=== PATIENT | male | born 1990 | race Two or more races ===

== ENCOUNTER 2017-02-18 18:09 | Observation (INO) | payer SELFPAY ==
[~2017-02-18 18:09] MED LIST: DEXAMETHASONE SOD PHOSPHATE INJ 4 MG/1 ML VIAL ONE; GLYCOPYRROLATE INJ 0.4 MG/2 ML VIAL ONE; NEOSTIGMINE METHYLSULFATE 10 MG/10 ML VIAL ONE; ONDANSETRON HCL INJ/PF 4 MG/2 ML SDV ONE; ROCURONIUM BROMIDE INJ 50 MG/5 ML VIAL IV ONE; SUCCINYLCHOLINE CHLORIDE INJ 200 MG/10 ML VIAL ONE
[2017-02-18] MEDS ORDERED: NORMAL SALINE 1000 ML 1,000 ML IV ONE (19:20)
--- NOTE | 2017-02-18 19:21 | ER Document Report ---
ED Medical Screen (RME) - General Chief Complaint: Abdominal Pain Stated Complaint: ABDOMINAL PAIN Time Seen by Provider: 02/18/17 19:20 Notes: Patient with 1 day of central abdominal pain with decreased appetite and vomiting. No problems with urination or stools. No previous abdominal surgeries. TRAVEL OUTSIDE OF THE [place] IN LAST 30 DAYS: No - Related Data Allergies/Adverse Reactions: No Known Allergies Allergy (Unverified 02/18/17 18:12) Past Medical History - Social History Chew tobacco use (# tins/day): No Frequency of alcohol use: None Drug Abuse: None Renal/ Medical History: Denies: Hx Peritoneal Dialysis Physical Exam - Vital signs Vitals: Temp Pulse Resp BP Pulse Ox 97.8 F 81 20 146/80 H 97 02/18/17 18:14 02/18/17 18:14 02/18/17 18:14 02/18/17 18:14 02/18/17 18:14 Course - Vital Signs Vital signs: Temp Pulse Resp BP Pulse Ox 97.8 F 81 20 146/80 H 97 02/18/17 18:14 02/18/17 18:14 02/18/17 18:14 02/18/17 18:14 02/18/17 18:14
[2017-02-18 19:55] LABS: APPEARANCE,URINE SLIGHTLY-CLOUDY; BILIRUBIN,URINE NEGATIVE (NEGATIVE); GLUCOSE, URINE NEGATIVE (NEGATIVE); KETONES,URINE NEGATIVE (NEGATIVE); LEUKOCYTE ESTERASE,URINE NEGATIVE (NEGATIVE); NITRITE,URINE NEGATIVE (NEGATIVE); PROTEIN,URINE 30 mg/dL (NEGATIVE); URINE SPECIFIC GRAVITY 1.035; UROBILINOGEN,URINE NEGATIVE mg/dL (<2.0)
[2017-02-18] MEDS ORDERED: ONDANSETRON HCL INJ/PF 4 MG/2 ML SDV IV ONE (19:59)
[2017-02-18 20:04] LABS: HEMATOCRIT 46.1 % (37.9-51.0); HEMOGLOBIN 15.7 g/dL (13.5-17.0); MEAN CORPUSCULAR HEMOGLOBIN 28.8 pg (27.0-33.4); MEAN CORPUSCULAR HGB CONC 34.1 g/dL (32.0-36.0); MEAN CORPUSCULAR VOLUME 84 fl (80-97); RED BLOOD COUNT 5.46 10^6/uL (4.35-5.55); RED CELL DISTRIBUTION WIDTH 13.3 % (11.5-14.0); WHITE BLOOD COUNT 19.8 10^3/uL (4.0-10.5)
[2017-02-18 20:23] LABS: ALANINE AMINOTRANSFERASE 101 U/L (21-72); ALBUMIN 5.3 g/dL (3.5-5.0); ALKALINE PHOSPHATASE 69 U/L (38-126); ANION GAP 19 (5-19); ASPARTATE AMINO TRANSFERASE 56 U/L (17-59); BILIRUBIN,DIRECT 0.4 mg/dL (0.0-0.4); BILIRUBIN,TOTAL 0.8 mg/dL (0.2-1.3); BLOOD UREA NITROGEN 18 mg/dL (7-20); CALCIUM 9.9 mg/dL (8.4-10.2); CARBON DIOXIDE 25 mmol/L (22-30); CHLORIDE 99 mmol/L (98-107); CREATININE RESULT 0.87 mg/dL (0.52-1.25); GLUCOSE 125 mg/dL (75-110); LIPASE 66.4 U/L (23-300); POTASSIUM 4.1 mmol/L (3.6-5.0); SODIUM 142.7 mmol/L (137-145); TOTAL PROTEIN 9.1 g/dL (6.3-8.2)
[2017-02-18 20:31] LABS: BAND NEUTROPHILS % (MANUAL) 1 % (3-5); BASOPHILS % (MANUAL) 0 % (0-2); EOSINOPHILS % (MANUAL) 0 % (0-6); LYMPHOCYTES % (MANUAL) 5 % (13-45); PLATELET CLUMPS PRESENT; TOTAL CELLS COUNTED 100
--- NOTE | 2017-02-18 20:45 | RADIOLOGY REPORT (SQ) ---
EXAM DESCRIPTION: U/S ABDOMEN LIMITED W/O DOP COMPLETED DATE/TIME: 02/18/2017 8:37 pm REASON FOR STUDY: upper abdominal pain, vomiting COMPARISON: None. TECHNIQUE: Dynamic and static grayscale images acquired of the abdomen and recorded on PACS. Additio nal selected color Doppler and spectral images recorded. LIMITATIONS: None. FINDINGS: PANCREAS: No masses. Visualized pancreatic duct normal caliber. LIVER: Diffusely heterogeneous echo pattern without distinct focal masses. Normal size. LIVER VASCULATURE: Normal directional flow of the main portal vein and hepatic veins. GALLBLADDER: No stones. Normal wall thickness. No pericholecystic fluid. ULTRASOUND-DETECTED ECHOLS'S SIGN: Negative. INTRAHEPATIC DUCTS AND COMMON DUCT: CBD and intrahepatic ducts normal caliber. No filling defects. INFERIOR VENA CAVA: Normal flow. AORTA: No aneurysm. RIGHT KIDNEY: Normal size. Normal echogenicity. No solid or suspicious masses. No hydronephrosis. No calcifications. PERITONEAL AND RIGHT PLEURAL SPACE: No ascites or effusions. OTHER: No other significant findings. IMPRESSION: Diffusely heterogeneous echo pattern in the liver without a focal mass. Question hepati tis. Infiltrative process in the differential. TECHNICAL DOCUMENTATION: JOB ID: [id number] [employer]- All Rights Reserved
[2017-02-18] MEDS ORDERED: MORPHINE SULFATE 10 MG/ML INJ IV PRN (20:51)
--- NOTE | 2017-02-18 20:53 | ER Document Report ---
ED General - General Chief Complaint: Abdominal Pain Stated Complaint: ABDOMINAL PAIN Time Seen by Provider: 02/18/17 19:20 Notes: Patient is a 26-year-old male without past medical history who presents with approximately 12 hours of progressively worsening lower abdominal pain. Patient describes as a dull, constant throbbing pain to the lower abdomen. Touching the area or moving worsens the pain. Nothing improves the pain. He denies any history of similar symptoms in the past. He has no prior history of abdominal surgeries. He notes associated vomiting but he has not had fever or diarrhea. No dysuria. He has not seen his primary care doctor regarding today' s concerns. TRAVEL OUTSIDE OF THE [place] IN LAST 30 DAYS: No - Related Data Allergies/Adverse Reactions: No Known Allergies Allergy (Unverified 02/18/17 18:12) Past Medical History - General Information source: Patient - Social History Smoking Status: Current Some Day Smoker Chew tobacco use (# tins/day): No Frequency of alcohol use: None Drug Abuse: None Lives with: Spouse/Significant other Family History: Reviewed & Not Pertinent Patient has suicidal ideation: No Patient has homicidal ideation: No Renal/ Medical History: Denies: Hx Peritoneal Dialysis Review of Systems - Review of Systems Notes: Constitutional: Negative for fever. HENT: Negative for sore throat. Eyes: Negative for visual changes. Cardiovascular: Negative for chest pain. Respiratory: Negative for shortness of breath. Gastrointestinal: Positive for abdominal pain and vomiting Genitourinary: Negative for dysuria. Musculoskeletal: Negative for back pain. Skin: Negative for rash. Neurological: Negative for headaches, weakness or numbness. 10 point ROS negative except as marked above and in HPI. Physical Exam - Vital signs Vitals: Temp Pulse Resp BP Pulse Ox 97.8 F 81 20 146/80 H 97 02/18/17 18:14 02/18/17 18:14 02/18/17 18:14 02/18/17 18:14 02/18/17 18:14 Interpretation: Hypertensive Notes: PHYSICAL EXAMINATION: GENERAL: Appears uncomfortable but in no acute distress HEAD: Atraumatic, normocephalic. EYES: Pupils equal round and reactive to light, extraocular movements intact, sclera anicteric, conjunctiva are normal. ENT: nares patent, oropharynx clear without exudates. Moderately dry mucous membranes. NECK: Normal range of motion, supple without lymphadenopathy LUNGS: Breath sounds clear to auscultation bilaterally and equal. No wheezes rales or rhonchi. HEART: Regular rate and rhythm without murmurs ABDOMEN: Soft, focal tenderness to the right lower quadrant with rebound and voluntary guarding. No otherwise localized tenderness. EXTREMITIES: Normal range of motion, no pitting or edema. No cyanosis. NEUROLOGICAL: No focal neurological deficits. Moves all extremities spontaneously and on command. PSYCH: Normal mood, normal affect. SKIN: Warm, Dry, normal turgor, no rashes or lesions noted. Course - Re-evaluation Re-evalutation: 02/18/17 20:52 Patient presents with changing stories, initially reporting acute onset of upper abdominal pain in triage prompting a workup of right upper quadrant epigastric abdominal pain. However when I assessed the patient he actually has a different story reporting progressively worsening, gradual onset lower abdominal pain that started centrally and is now more towards right lower quadrant. He has focal tenderness to the right lower quadrant with rebound and some voluntary guarding. Exam is very worrisome for acute appendicitis and his white count is 19.8. Will proceed with CT abdomen pelvis to further assess. 02/18/17 21:58 CT does demonstrate an acute appendicitis. I have discussed this case with Dr. Tejeda who is accepted the patient to go to the operating room. - Vital Signs Vital signs: Temp Pulse Resp BP Pulse Ox 99 F 117 H 16 133/72 H 96 02/19/17 00:54 02/19/17 00:54 02/19/17 00:54 02/19/17 00:54 02/19/17 00:54 - Laboratory Result Diagrams: 02/18/17 19:50 02/18/17 19:50 Laboratory results interpreted by me: 02/18/17 02/18/17 02/18/17 19:30 19:50 19:50 WBC 19.8 H Seg Neuts % (Manual) 87 H Band Neutrophils % 1 L Lymphocytes % (Manual) 5 L Abs Neuts (Manual) 17.4 H Glucose 125 H ALT 101 H Total Protein 9.1 H Albumin 5.3 H Urine Protein 30 H - Diagnostic Test Radiology reviewed: Reports reviewed Discharge - Discharge Clinical Impression: Acute appendicitis Qualifiers: Acute appendicitis type: with localized peritonitis Qualified Code(s): K35.3 - Acute appendicitis with localized peritonitis Condition: Fair Disposition: ADMITTED OBSERVATION Admitting Provider: Surgicalist - [facility] Admitted: OR
--- NOTE | 2017-02-18 21:33 | RADIOLOGY REPORT (SQ) ---
EXAM DESCRIPTION: CT ABD/PELVIS WITH IV ONLY COMPLETED DATE/TIME: 02/18/2017 9:21 pm REASON FOR STUDY: rlq pain, eval appendicitis COMPARISON: None. TECHNIQUE: CT scan of the abdomen and pelvis performed using helical scanning technique with dynamic intravenous contrast injection. No oral contrast. Images reviewed with lung, soft tissue, and bone windows. Reconstructed coronal and sagittal MPR images reviewed. Delayed images for evaluation of the urinary system also acquired. All images stored on PACS. All CT scanners at this facility use dose modulation, iterative reconstruction, and/or weight based d osing when appropriate to reduce radiation dose to as low as reasonably achievable (ALARA). [facility]: Dose Right [facility]: CareDose [facility]: Dose Right [facility]: Teradose 4D [facility]: [employer] CONTRAST TYPE AND DOSE: contrast/concentration: Isovue 370.00 mg/ml; Total Contrast Delivered: 89.0 ml; Total Saline Delivered: 45.0 ml RENAL FUNCTION: None required. The patient is less than 50 years old. RADIATION DOSE: Up-to-date CT equipment and radiation dose reduction techniques were employed. CTDIv ol: 10.6 - 15.0 mGy. DLP: 1400 mGy-cm.. LIMITATIONS: None. FINDINGS: LOWER CHEST: No significant findings. No nodules or infiltrates. LIVER: Normal size. No masses. No dilated ducts. SPLEEN: Normal size. No focal lesions. PANCREAS: No masses. No significant calcifications. No adjacent inflammation or peripancreatic fluid collections. Pancreatic duct not dilated. GALLBLADDER: No identified stones by CT criteria. No inflammatory changes to suggest cholecystitis. ADRENAL GLANDS: No significant masses or asymmetry. RIGHT KIDNEY AND URETER: No solid masses. No significant calcifications. No hydronephrosis or hyd roureter. LEFT KIDNEY AND URETER: No solid masses. No significant calcifications. No hydronephrosis or hydr oureter. AORTA AND VESSELS: No aneurysm. No dissection. Renal arteries, SMA, celiac without stenosis. RETROPERITONEUM: No retroperitoneal adenopathy, hemorrhage or masses. BOWEL AND PERITONEAL CAVITY: No masses or inflammatory changes. No free fluid or peritoneal masses. APPENDIX: Dilated appendix containing appendicolith. PELVIS: No mass. No free fluid. Normal bladder. ABDOMINAL WALL: No masses. No hernias. BONES: No significant or acute findings. OTHER: No other significant finding. IMPRESSION: Appendicitis. No perforation or abscess. COMMENT: Pertinent findings on the imaging study reported as a CRITICAL RESULT to MACIEJ freitas t21:27 on 02/18/2017. Category of Critical Result: Acute appendicitis TECHNICAL DOCUMENTATION: JOB ID: [id number] Quality ID # [id number]: Final reports with documentation of one or more dose reduction techniques (e.g., Au tomated exposure control, adjustment of the mA and/or kV according to patient size, use of iterative reconstruction technique) 2010 [employer]- All Rights Reserved
[2017-02-18] MEDS ORDERED: PIPERACILLIN/TAZOBACTAM 3.375 GM VIAL IV ONE ×2 (21:45→22:16)
--- NOTE | 2017-02-18 22:16 | PDOC H&P ---
History of Present Illness Admission Date/PCP: 02/18/17 Patient complains of: RLQ pains History of Present Illness: AUSTYN PRUETT is a 26 year old male C/O RLQ pains at 8 am.Associated nausea and vomiting Past Medical History Past Medical History: No medical past history Past Surgical History Past Surgical History: hedge trimmer previous surgery Social History Smoking Status: Current Some Day Smoker - Advance Directive Resuscitation Status: Full Code Family History Family History: Reviewed & Not Pertinent Parental Family History Reviewed: Yes Children Family History Reviewed: No Sibling(s) Family History Reviewed.: No Medication/Allergy Allergies/Adverse Reactions: No Known Allergies Allergy (Unverified 02/18/17 18:12) Review of Systems Constitutional: PRESENT: other - no fever nor chills Eyes: PRESENT: other - no visual or hearing problems Nose, Mouth, and Throat: PRESENT: other - no sore throat Cardiovascular: PRESENT: other - no chest pains Respiratory: PRESENT: other - no cough Gastrointestinal: PRESENT: as per HPI Musculoskeletal: PRESENT: other - no muscle pains Integumentary: PRESENT: other - no rash Neurological: PRESENT: other - no seizures Endocrine: PRESENT: other - no cold or heat intolerance Hematologic/Lymphatic: PRESENT: other - no bleeding tendency or lymphadenopathy Physical Exam Vital Signs: Temp Pulse Resp BP Pulse Ox 97.8 F 81 20 146/80 H 97 02/18/17 18:14 02/18/17 18:14 02/18/17 18:14 02/18/17 18:14 02/18/17 18:14 Intake & Output 02/17/17 02/18/17 02/19/17 06:59 06:59 06:59 Weight 82.1 kg General appearance: PRESENT: mild distress Head exam: PRESENT: atraumatic, normocephalic Eye exam: PRESENT: conjunctiva pink Ear exam: PRESENT: normal external ear exam Mouth exam: PRESENT: moist, tongue midline Neck exam: PRESENT: full ROM Respiratory exam: PRESENT: clear to auscultation bam Cardiovascular exam: PRESENT: RRR Pulses: PRESENT: normal femoral pulses Vascular exam: PRESENT: normal capillary refill GI/Abdominal exam: PRESENT: soft, tenderness - RLQ tenderness Rectal exam: PRESENT: deferred Extremities exam: PRESENT: full ROM Musculoskeletal exam: PRESENT: ambulatory Neurological exam: PRESENT: alert, oriented to person, oriented to place, oriented to time, oriented to situation Psychiatric exam: PRESENT: appropriate affect Skin exam: PRESENT: normal color, warm Results Laboratory Results: 02/18/17 19:50 02/18/17 19:50 02/18/17 02/18/17 02/18/17 19:30 19:50 19:50 WBC 19.8 H RBC 5.46 Hgb 15.7 Hct 46.1 MCV 84 MCH 28.8 MCHC 34.1 RDW 13.3 Plt Count 219 Seg Neutrophils % Not Reportable Lymphocytes % Not Reportable Monocytes % Not Reportable Eosinophils % Not Reportable Basophils % Not Reportable Absolute Neutrophils Not Reportable Absolute Lymphocytes Not Reportable Absolute Monocytes Not Reportable Absolute Eosinophils Not Reportable Absolute Basophils Not Reportable Sodium 142.7 Potassium 4.1 Chloride 99 Carbon Dioxide 25 Anion Gap 19 BUN 18 Creatinine 0.87 Est GFR ( Amer) > 60 Est GFR (Non-Af Amer) > 60 Glucose 125 H Calcium 9.9 Total Bilirubin 0.8 AST 56 ALT 101 H Alkaline Phosphatase 69 Total Protein 9.1 H Albumin 5.3 H Lipase 66.4 Urine Color YELLOW Urine Appearance SLIGHTLY-CLOUDY Urine pH 6.0 Ur Specific Nelson 1.035 Urine Protein 30 H Urine Glucose (UA) NEGATIVE Urine Ketones NEGATIVE Urine Blood NEGATIVE Urine Nitrite NEGATIVE Ur Leukocyte Esterase NEGATIVE Urine WBC (Auto) 3 Urine RBC (Auto) 6 Impressions: Abdomen Ultrasound 02/18/17 19:59 IMPRESSION: Diffusely heterogeneous echo pattern in the liver without a focal mass. Question hepatitis. Infiltrative process in the differential. Abdomen/Pelvis CT 02/18/17 20:51 IMPRESSION: Appendicitis. No perforation or abscess. Assessment & Plan - Time Time Spent: 30 to 50 Minutes - Inpatient Certification Based on my medical assessment, after consideration of the patient's comorbidities, presenting symptoms, or acuity I expect that the services needed warrant INPATIENT care.: No I certify that my determination is in accordance with my understanding of Medicare's requirements for reasonable and necessary INPATIENT services [42 CFR 412.3e].: Yes Medical Necessity: Need for IV Antibiotics, Need for Surgery - Plan Summary Plan Summary: Start IV antibiotics Hydrate For lap appendectomy
[2017-02-18] MEDS ORDERED: HYDROMORPHONE HCL INJ/PF 2 MG/ML AMPULE ONE ×2 (22:37→22:38)
[2017-02-18] MEDS ORDERED: FENTANYL CITRATE INJ/PF 100 MCG/2 ML AMPUL ONE (22:37)
[2017-02-18] MEDS ORDERED: MIDAZOLAM 2 MG/2 ML INJ ONE (22:38)
[2017-02-18] MEDS ORDERED: PROPOFOL INJ 200 MG/20 ML VIAL IV ONE (22:38)
[2017-02-18] MEDS ORDERED: IBUPROFEN INJ 800 MG/8 ML VIAL IV ONE (22:38)
[2017-02-18] MEDS ORDERED: BUPIVACAINE HCL 0.25 % INJ/PF (2.5 MG/1 ML) 30 ML VIAL ONE (22:41)
[2017-02-18] MEDS ORDERED: BUPIVACAINE HCL 0.25 % INJ/PF (2.5 MG/1 ML) 30 ML VIAL INJ ONE ×2 (23:07)
[2017-02-18] MEDS ORDERED: MEPERIDINE HCL/PF INJ 25 MG/1 ML DISP.SYRIN IV PRN (23:12)
[2017-02-18] MEDS ORDERED: DIPHENHYDRAMINE HCL 50 MG/ML VIAL IV PRN (23:12)
[2017-02-18] MEDS ORDERED: PROMETHAZINE HCL INJ 25 MG/1 ML VIAL IV PRN (23:12)
[2017-02-18] MEDS ORDERED: FENTANYL CITRATE INJ/PF 100 MCG/2 ML AMPUL IV PRN ×3 (23:12)
[2017-02-19] MEDS ORDERED: PIPERACILLIN/TAZOBACTAM 3.375 GM VIAL IV PRN (00:16)
[2017-02-19] MEDS ORDERED: OXYCODONE-ACETAMINOPHEN 5-325 MG TABLET PO PRN (00:17)
[2017-02-19] MEDS ORDERED: ONDANSETRON HCL INJ/PF 4 MG/2 ML SDV IV PRN (00:18)
[2017-02-19] MEDS ORDERED: NORMAL SALINE 1000 ML 1,000 ML IV PRN (00:18)
[2017-02-19] MEDS ORDERED: MORPHINE SULFATE 10 MG/ML INJ IV PRN (00:18)
--- NOTE | 2017-02-19 00:43 | OPERATIVE REPORT E ---
Operative Report NAME: AUSTYN PRUETT : 1990 AGE: 26Y DATE OF SURGERY: 02/18/2017 ROOM: ED20 PREOPERATIVE DIAGNOSIS: Acute appendicitis. POSTOPERATIVE DIAGNOSIS: Acute appendicitis. PROCEDURE PERFORMED: Laparoscopic appendectomy. SURGEON: MANOLO GARCIA M.D. ANESTHESIA: General. INDICATION: This is a 26-year-old male with complaint of right lower quadrant around 6:00 this morning. Pain worsened, went to the emergency room where a CT scan of the abdomen revealed acute appendicitis. DESCRIPTION OF PROCEDURE: After adequate general anesthesia, patient was placed in supine position and the abdomen prepped and draped in the usual sterile fashion. Appropriate timeout was called. An infraumbilical elliptical incision was made and the fascia identified and grasped with 2 Julia clamps and divided between the 2 Julia clamps. The fascia was further deepened with the use of hemostat and also with blunt finger dissection down into the abdominal cavity. Next, a Zhao trocar was then inserted into the abdominal cavity and CO2 insufflated to a pressure of 15 mmHg. A camera was then inserted and 2 other trocars were placed under direct vision, a 5 mm in the suprapubic area, and a 12 mm in the left lower quadrant. The appendix was then identified and grasped with a grasper, and the mesoappendix was subsequently divided and ligated and cauterized with harmonic lakesha. The base of the appendix was noted to be clear of any inflammation but the whole appendix was noted to be completely inflamed. Next, the base of the appendix close to the cecum was then divided with an Endo YIFAN stapler device. It was initially stapled and then divided. The appendix was then placed in the Endo bag and brought out through the umbilical port. This was noted to have at least a fecalith. Appendix also noted to be quite dilated and inflamed. Next, the appendectomy site was inspected and irrigated with saline solution. There was small oozing close to the lateral wall and controlled with harmonic cautery. Good hemostasis was noted and the stump looked good without any evidence of bleeding. The omentum was subsequently pulled over the area of the appendectomy site. Trocars were then removed and CO2 allowed to come out of the trocar sites. Next, the fascial defect at the infraumbilical layer was then closed with a [id number] suture, using 0 Vicryl and 2 simple stitches also placed on each side. All the incisions were then closed with running subcuticular 4-0 Vicryl. Sterile dressings were placed over the operative sites. Needle, instrument, and sponge counts were all correct. Estimated blood loss was about 10 mL. DICTATING PHYSICIAN: MANOLO GARCIA M.D. [id number] PHY#: [id number] ID: [id number] JOB#: [id number] ACCT: [id number] cc:MANOLO GARCIA M.D. >
[2017-02-19] MEDS ORDERED: PIPERACILLIN/TAZOBACTAM 3.375 GM VIAL IV ONE (01:14)
[2017-02-19] MEDS: PIPERACILLIN SODIUM/TAZOBACTAM 3.375 GM in NORMAL SALINE 100 ML IV SCH ×2 (02:43→08:38)
[2017-02-19] MEDS ORDERED: PIPERACILLIN SODIUM/TAZOBACTAM 3.375 GM in NORMAL SALINE 100 ML IV SCH (06:00)
[2017-02-19 06:34] LABS: ABSOLUTE MONOCYTES (AUTO) 0.8 10^3/uL (0.1-1.4); BASOPHILS % (AUTO) 0.1 % (0-2); HGB HCT DIFFERENCE 1.5; LYMPHOCYTES % (AUTO) 5.7 % (13-45); MEAN CORPUSCULAR HEMOGLOBIN 29.4 pg (27.0-33.4); MEAN CORPUSCULAR HGB CONC 34.6 g/dL (32.0-36.0); MEAN CORPUSCULAR VOLUME 85 fl (80-97); MONOCYTES % (AUTO) 4.3 % (3-13); RED BLOOD COUNT 4.59 10^6/uL (4.35-5.55); RED CELL DISTRIBUTION WIDTH 13.3 % (11.5-14.0); SEGMENTED NEUTROPHILS % (AUTO) 89.9 % (42-78); WHITE BLOOD COUNT 17.9 10^3/uL (4.0-10.5)
[2017-02-19 06:39] LABS: HEMOGLOBIN 13.5 g/dL (13.5-17.0)
[2017-02-19 10:05] VITALS: BP 139/64
--- NOTE | 2017-02-19 14:18 | DISCHARGE SUMMARY E ---
Discharge Summary NAME: AUSTYN PRUETT : 1990 AGE: 26Y ADMITTED: 02/18/2017 DISCHARGED: 02/19/2017 FINAL DIAGNOSIS: Acute appendicitis. PROCEDURE DONE: Laparoscopic appendectomy on 02/18/17. SURGEON: Dr. Tejeda [facility]RSE: This is a 26-year-old male complaining of right lower quadrant pains with nausea on the morning of admission. He had a CAT scan of the abdomen which was compatible with acute appendicitis. He then underwent laparoscopic appendectomy on 02/18/17. Postoperatively he did very well and discharged improved on 02/19/17 with the final diagnosis of acute appendicitis. Patient advised not to lift more than 15 pounds for the next week and then gradually increase it as tolerated. He can resume regular diet in the next 2 days. He will be seen in the surgical clinic in 2 weeks. A prescription for Percocet 5/325 was given to the patient to take 1 every 4 hours as needed for pain and a total of about 10 pills were prescribed. DICTATING PHYSICIAN: MANOLO TEJEDA M.D. [id number] PHY#: [id number] ID: [id number] JOB#: [id number] ACCT: [id number] cc:MANOLO TEJEDA M.D. >
== END 2017-02-19 11:00 | disposition home or self-care (01) ==
LOC: ER 18:09 → EH 22:08 → UNDOADMOB 22:08 → EH 22:18 → 4N 02-19 01:00
PROVIDERS: ADMIT Surgery; ATTEND Surgery
PROC: 0DTJ4ZZ Resection of Appendix, Percutaneous Endoscopic Approach (ICD-10-PCS; principal; 2017-02-18 23:00)
DX: K35.3 Acute appendicitis with localized peritonitis (principal); F17.200 Nicotine dependence, unspecified, uncomplicated; R03.0 Elevated blood-pressure reading, without diagnosis of hypertension
CPT/HCPCS: 99285; 96361; 96375; 96365; 36415 ×2; 83690; 85025 ×2; 80053; 81001; 88304 ×2; 76705; 74177; 44970; J2250; J3490; J1100; J3010; J2270; J1170; J0330; J2405; J7030 ×2; J2704; J2543 ×2; J1741; 840; G0378